=== PATIENT | female | born 1980 | race Caucasian/White ===

== ENCOUNTER 2022-05-16 15:27 | Emergency (ER) | payer BC, SELFPAY ==
[2022-05-16 15:29] VITALS: BP 121/82; PULSE 85; RESP 16; TEMP 36.1; O2SAT 99; BMI 39.4
--- NOTE | 2022-05-16 15:41 | CT_ITS ---
STUDY: CT ABDOMEN AND PELVIS WITHOUT CONTRAST REASON FOR EXAM: Female, 41 years old. left flank pain RADIATION DOSAGE (If Supplied By Facility): CTDIvol = ( 16.92 ) mGy, DLP = ( 841.42 ) mGycm TECHNIQUE: Transaxial images were obtained from the dome of the diaphragm to the symphysis pubis without oral contrast, and without intravenous contrast. Sagittal and coronal images were reconstructed. Individualized dose optimization techniques were used for this CT. COMPARISON: None. FINDINGS: The visualized lung bases are unremarkable. The visualized portions of the heart are within normal limits. Normal liver. Normal gallbladder and extrahepatic biliary system. Normal spleen. Normal pancreas. Normal bilateral adrenal glands. Normal right kidney. Normal left kidney. Normal visualized stomach. Mild nonspecific ileus diffuse fecal retention in colon.. Minor diverticular changes of the distal descending and sigmoid colon without evidence for acute diverticulitis. The appendix is visualized and appears normal. Minor atherosclerotic changes of the aorta without evidence for aneurysm.. Normal inferior vena cava. Normal retroperitoneum. Poorly distended thick walled bladder of uncertain significance.. IUD noted within the endometrial canal the uterus. There is a small amount of fluid in the cul-de-sac on the left possibly due to recent ovulation. Normal abdominal wall. Normal osseous structures. CT/Abdomen/Pelvis without Cont IMPRESSION: Mild ileus with diffuse fecal retention in the colon. Diverticular changes of the distal descending and sigmoid colon without evidence for acute diverticulitis. Small amount of fluid in the cul-de-sac possibly on the basis of recent ovulation. However clinical correlation is recommended in this regard Electronically Signed: Diego Rogers MD at 18:13 EST ,
[2022-05-16] MEDS: Ketorolac 30 MG/ML Syringe IV (15:48)
[2022-05-16 16:00] LABS: Absolute Lymphocyte Count 2.59 X10^3/uL (0.83-4.51); Absolute Neutrophil Count 7.4 X10^3/uL (2.0-7.7); Basophil# 0.02 X10^3/uL; Basophil% 0.2 % (0-1); Eosinophils% 1.8 % (0-5); Hematocrit 41.3 % (37-47); Lymphocyte # 2.59 X10^3/ul (0.83-4.51); Lymphocyte % 23.6 % (19-41); Mean Corp Hgb Conc 33.9 g/dL (32-36); Mean Corpuscular Volume 88.6 fL (81-99); Mean Platelet Vol. 9.7 fl (6.2-12.0); Monocyte# 0.76 X10^3/uL; Monocyte% 6.9 % (0-10); NRBC Flagged by Analyzer 0 % (0-5); Neutrophil # 7.35 X10^3/uL (2.7-7.7); Neutrophil % 67.1 % (47-70); Platelet Count 254 K/mm3 (150-450); RBC Distribution Width CV 11.9 % (11.6-14.6); RBC Distribution Width SD 38.5 fl (35.1-43.9); Red Blood Count 4.66 M/mm3 (4.2-5.4)
--- NOTE | 2022-05-16 16:04 | EDS_ITS ---
HPI <RAFAELA Cardenas - Last Filed: 05/16/22 20:14> History of Present Illness Chief Complaint: Back Narrative Narrative: 41-year-old female has had 1 month of left lower back pain. She states it felt like her sacrum was not in the right position so she went to the chiropractor, massage therapist, and has been using [id number] pain relievers and a TENS unit with no relief. Pain worsened over the last few days and seems to be wrapping around to her left side. She felt nauseous this morning with no vomiting. No urinary symptoms. She states maybe it felt a little difficult to pee today but she did not have a lot of fluids to drink. No history of kidney stones. No direct injury to her back although prior to this happening she had lifted a heavy umbrella. There is no pain radiating into her buttocks or lower extremities. No weakness, numbness or tingling, saddle anesthesia, or bladder or bowel incontinence. PFSH <RAFAELA Cardenas - Last Filed: 05/16/22 20:14> [facility] Medical History no medical history Home Medications amoxicillin 500 mg-potassium clavulanate 125 mg tablet (Augmentin) 1 tab PO BID 7 days #14 tabs 05/16/22 [Rx Last Taken Unknown] methocarbamol 500 mg tablet 500 mg PO Q8H 5 days #15 tabs 05/16/22 [Rx Last Taken Unknown] Allergy/AdvReac Type Severity Reaction Status Date / Time Penicillins Allergy Shortness Verified 05/16/22 15:36 of breath pineapple Allergy Hives Verified 05/16/22 15:36 Family History no significant family his Surgical History no surgical history Social History Smoking Status: Never smoker ROS <RAFAELA Cardenas - Last Filed: 05/16/22 20:14> ROS ED ROS Narrative Constitutional: Negative for fever, chills, malaise. CVS: Negative for palpitations, chest pain. Respiratory: Negative for shortness of breath, cough. GI: Negative for abdominal pain, vomiting, diarrhea, constipation, melena, hematochezia. : Negative for dysuria, hematuria or frequency. Neuro: Negative for motor/sensory dysfunction. Skin: Negative for rash, abscess, or wound. Musc: Negative for joint pain, swelling, trauma. EXAM <RAFAELA Cardenas - Last Filed: 05/16/22 20:14> Physical Exam Narrative Exam Narrative: CONST: Patient standing and flexed forward at the hips leaning against the bed. EYES: Normal inspection. ENT: Normal inspection, moist mucous membranes. NECK: Normal inspection. RESP: No respiratory distress, CTAB. CVS: Regular rate and rhythm, no murmur, no gallop. ABD: Soft and nontender, no guarding or rebound, nondistended. Back: Normal inspection, left CVA tenderness. No midline tenderness or step- offs. SKIN: Color normal, no rash, warm, dry, intact. EXTREMITIES: Normal appearance, no pedal edema. 5/5 strength in the bilateral hip flexion, knee flexion/extension, DF/PF. Normal sensation, 2+ DP pulses. Normal gait. NEURO: Oriented x4. PSYCH: Normal affect. Const Vital Signs: 05/16/22 15:29 05/16/22 18:31 05/16/22 19:00 Temperature 97 F L Temperature Source Temporal Pulse Rate 85 Respiratory Rate 16 18 Blood Pressure 121/82 H 113/60 Blood Pressure Mean 95 Pulse Ox 99 99 Oxygen Delivery Method Room Air Room Air <Dr. Marcos Nieves MD - Last Filed: 05/16/22 18:28> Physical Exam Const Vital Signs: 05/16/22 15:29 05/16/22 18:31 05/16/22 19:00 Temperature 97 F L Temperature Source Temporal Pulse Rate 85 Respiratory Rate 16 18 Blood Pressure 121/82 H 113/60 Blood Pressure Mean 95 Pulse Ox 99 99 Oxygen Delivery Method Room Air Room Air [facility] <RAFAELA Cardenas - Last Filed: 05/16/22 20:14> [facility] Narrative Medical decision making narrative: Patient is having a month of back pain but it seems more acute today in the left flank. She appears uncomfortable but nontoxic. Vital signs are unremarkable. She has a normal heart lung exam. Abdomen is soft, nontender, nondistended. She has left CVA tenderness. There is no midline spinal tenderness or step- offs. Its not her low back so with no concern for cauda equina?she also has no rmal lower extremity MSPs and reflexes and no red flag signs. Labs and CT scan will be obtained to rule out a kidney stone. CBC shows white count of 11.0, BMP normal. UA has 100 leukocyte esterace but is otherwise negative. Not consistent with UTI. CT shows no acute renal process. It does note mild ileus with diffuse fecal retention and diverticular changes of the distal descending and sigmoid colon. With this we elected to treat her for possibly early diverticulitis with Augmentin. Patient states she has had a rash with penicillins in the past but is taken Augmentin with no problems. She was given the first dose here and monitored for 30 minutes with no symptoms. I also told her to take Metamucil 3 times a day to have more regular bowel movements and prescribe Robaxin for her flank pain in case it is musculoskeletal. She was given return precautions and discharged in stable condition. Differential: Kidney stone, pyelonephritis, UTI, musculoskeletal pain Test considered but not ordered: MRI is not indicated as this is not radicular pain, no red flags concerning for cauda equina or epidural abscess. I have personally performed a face to face assessment of the patient and have reviewed the BEATRIS Note. I performed a substantive portion of the visit including all aspects of the following. My bertrand findings include: History is remarkable for abrupt onset of left flank pain that radiates anteriorly and to the left hip. This started on Thursday. It wax and wanes intensity. Patient has no history of renal ureterolithiasis. There is no family history of renal ureterolithiasis. She does report increased frequency. She has not noted blood in her urine. She does have pain with movement as well. Initially she could not find a position of comfort. She was lying on her side and was getting ready for a trip out of town. The pain has been persistent since onset. Exam is heavyset woman who appears uncomfortable. She is on her right side. Abdomen soft nontender. Bowel sounds are present normal. There is left CVA tenderness. Medical Decision Making differential diagnosis would include acute ureterolithiasis with obstruction, atypical presentation for urinary tract infection, atypical presentation for abdominal aortic aneurysm will obtain CT of the abdomen with out contrast as well as blood work and UA. Other additions or changes: [None] Lab Data Labs: Laboratory Results - last 24 hr 05/16/22 05/16/22 05/16/22 15:45 15:45 16:45 WBC 11.0 RBC 4.66 Hgb 14.0 Hct 41.3 MCV 88.6 MCH 30.0 MCHC 33.9 RDW Std Deviation 38.5 RDW Coeff of Hiram 11.9 Plt Count 254 MPV 9.7 Immature Gran % (Auto) 0.400 Neut % (Auto) 67.1 Lymph % (Auto) 23.6 [place] % (Auto) 6.9 Eos % (Auto) 1.8 Baso % (Auto) 0.2 Absolute Neuts (auto) 7.4 Absolute Lymphs (auto) 2.59 Nucleated RBC % 0 Sodium 139 Potassium 3.9 Chloride 109 H Carbon Dioxide 24.0 Anion Gap 6 BUN 11 Creatinine 0.88 Estim Creat Clear Calc 73.38 Est GFR (MDRD) Af Amer 91 Est GFR (MDRD) Non-Af 75 BUN/Creatinine Ratio 12.5 Glucose 114 H Calcium 8.8 Urine Color Yellow Urine Clarity Clear Urine pH 6.0 Ur Specific [place] 1.020 Urine Protein 30 H Urine Glucose (UA) Normal Urine Ketones 5 H Urine Occult Blood 10 H Urine Nitrite Negative Urine Bilirubin Negative Urine Urobilinogen Normal Ur Leukocyte Esterase 100 H Urine RBC 0 SEEN Urine WBC 0-5 SEEN Ur Squamous Epith Cells 0-5 SEEN Urine Bacteria RARE Urine Mucus 0 SEEN Urine Test Negative Radiography Diagnostic Testing: Clinical Impression(s) from Imaging Studies Abdomen/Pelvis CT 05/16/22 15:41 IMPRESSION: Mild ileus with diffuse fecal retention in the colon. Diverticular changes of the distal descending and sigmoid colon without evidence for acute diverticulitis. Small amount of fluid in the cul-de-sac possibly on the basis of recent ovulation. However clinical correlation is recommended in this regard Electronically Signed: Diego Rogers MD at 18:13 EST , <Dr. Marcos Nieves MD - Last Filed: 05/16/22 18:28> [facility] Narrative Medical decision making narrative: I have personally performed a face to face assessment of the patient and have reviewed the BEATRIS Note. I performed a substantive portion of the visit including all aspects of the following. My bertrand findings include: History is remarkable for abrupt onset of left flank pain that radiates anteriorly and to the left hip. This started on Thursday. It wax and wanes intensity. Patient has no history of renal ureterolithiasis. There is no family history of renal ureterolithiasis. She does report increased frequency. She has not noted blood in her urine. She does have pain with movement as well. Initially she could not find a position of comfort. She was lying on her side and was getting ready for a trip out of town. The pain has been persistent since onset. Exam is heavyset woman who appears uncomfortable. She is on her right side. Abdomen soft nontender. Bowel sounds are present normal. There is left CVA tenderness. Medical Decision Making differential diagnosis would include acute ureterolithiasis with obstruction, atypical presentation for urinary tract infection, atypical presentation for abdominal aortic aneurysm will obtain CT of the abdomen with out contrast as well as blood work and UA. Other additions or changes: [None] History & Record Review Additional record(s) reviewed:: Prior inpatient record (No outside records available), Prior outpatient record (No outside records available through [employer] [facility] [place]) and No prior records (At [facility]) Lab Data Labs: Laboratory Results - last 24 hr 05/16/22 05/16/22 05/16/22 15:45 15:45 16:45 WBC 11.0 RBC 4.66 Hgb 14.0 Hct 41.3 MCV 88.6 MCH 30.0 MCHC 33.9 RDW Std Deviation 38.5 RDW Coeff of Hiram 11.9 Plt Count 254 MPV 9.7 Immature Gran % (Auto) 0.400 Neut % (Auto) 67.1 Lymph % (Auto) 23.6 [place] % (Auto) 6.9 Eos % (Auto) 1.8 Baso % (Auto) 0.2 Absolute Neuts (auto) 7.4 Absolute Lymphs (auto) 2.59 Nucleated RBC % 0 Sodium 139 Potassium 3.9 Chloride 109 H Carbon Dioxide 24.0 Anion Gap 6 BUN 11 Creatinine 0.88 Estim Creat Clear Calc 73.38 Est GFR (MDRD) Af Amer 91 Est GFR (MDRD) Non-Af 75 BUN/Creatinine Ratio 12.5 Glucose 114 H Calcium 8.8 Urine Color Yellow Urine Clarity Clear Urine pH 6.0 Ur Specific [place] 1.020 Urine Protein 30 H Urine Glucose (UA) Normal Urine Ketones 5 H Urine Occult Blood 10 H Urine Nitrite Negative Urine Bilirubin Negative Urine Urobilinogen Normal Ur Leukocyte Esterase 100 H Urine RBC 0 SEEN Urine WBC 0-5 SEEN Ur Squamous Epith Cells 0-5 SEEN Urine Bacteria RARE Urine Mucus 0 SEEN Urine Test Negative Radiography Diagnostic Testing: Clinical Impression(s) from Imaging Studies Abdomen/Pelvis CT 05/16/22 15:41 IMPRESSION: Mild ileus with diffuse fecal retention in the colon. Diverticular changes of the distal descending and sigmoid colon without evidence for acute diverticulitis. Small amount of fluid in the cul-de-sac possibly on the basis of recent ovulation. However clinical correlation is recommended in this regard Electronically Signed: Diego Rogers MD at 18:13 EST Reading Location ID and State: [facility] / [place] , Service support , Discharge Plan Triage Chief Complaint: Back ED Midlevel Provider: Annemarie Alvarado ED Provider: Marcos Nieves Dx/Rx/DC Orders Clinical Impression: Constipation, Acute left flank pain, Elevated blood pressure reading, Diverticulosis Instructions: ED Constipation (Adult), ED Flank Pain, Uncertain Cause Prescriptions: New amoxicillin-pot clavulanate [Augmentin] 500-125 mg tablet 1 tab PO BID 7 Days Qty: 14 0RF methocarbamol 500 mg tablet 500 mg PO Q8H 5 Days Qty: 15 0RF Primary Care Provider: Care Physician,No Primary Referrals: Care Physician,No Primary [Primary Care Provider] - Activity Restrictions/Additional Instructions: I am not sure what is causing your flank pain. There is no evidence of kidney stone on the CAT scan. It does show significant stool throughout your colon and some diverticular disease. We will treat you for possible diverticulitis with antibiotics. Please buy Metamucil and take this 3 times a day until you are having regular bowel movements as your constipation may be contributing to your pain. Return to ER if symptoms worsen. Disposition Disposition: Home, Self Care
[2022-05-16 16:09] LABS: Anion Gap 6 (5-15); BUN 11 mg/dL (7-18); BUN/Creat Ratio 12.5 RATIO (10-20); Calcium,Total 8.8 mg/dL (8.5-10.1); Chloride 109 mmol/L (98-107); Creatinine, Serum 0.88 mg/dL (0.55-1.02); EST Glomerular Filtration Rate 75 mL/min (>60); Est Glom Filt Rate - Afr Amer 91 mL/min (>60); Estimated Creatinine Clearance 73.38 ml/min; Glucose 114 mg/dL (74-106); Potassium 3.9 mmol/L (3.5-5.1); Sodium Level 139 mmol/L (136-145)
[2022-05-16 16:52] LABS: Mucous, Urine 0 SEEN /hpf (<or=2+); Red Blood Cells-Urine 0 SEEN /hpf (0-5)
[2022-05-16 16:58] LABS: Color, Urine Yellow (Yellow); Glucose, Dipstick Normal (Normal); Ketone-Dipstick 5 mg/dl (Negative); Leukocyte Esterase-Dipstick 100 /ul (Negative); Nitrite-Dipstick Negative (Negative); Occult Blood-Urine 10 /ul (Negative); Protein-Dipstick 30 mg/dl (Negative); Urine Bilirubin Dipstick Negative (Negative); Urine Clarity Clear (Clear); Urine Urobilinogen Normal (Normal)
[2022-05-16 17:31] LABS: Bacteria RARE /hpf (None Seen); Squamous Epithelial Cells - UA 0-5 SEEN /hpf (5-10); White Blood Cells 0-5 SEEN /hpf (0-5)
[2022-05-16 17:32] LABS: Internal QC Validated? YES +Cl - CLEAR BKGD; Pregnancy, Urine Negative Negative
[2022-05-16 18:31] VITALS: BP 113/60
[2022-05-16] MEDS: Amox/Clavulanate 500 MG Tablet PO (18:42)
[2022-05-16] MEDS: Methocarbamol 500 MG Tablet PO (18:50)
[2022-05-16 19:00] VITALS: RESP 18; O2SAT 99
--- NOTE | 2022-05-16 19:16 | ED.RN ---
BEEN 30MIN SINCE PT TOOK MEDICATION. NO SWELLING,REDNESS AND HIVES. PT DENIES ANY OTHER SYM. STATING REACTIONS WERE INSTANT WITH PENICILLINS. PT EDUCATED ON SYM TO WATCH FOR IF ALLERGIC REACTION WOULD TO HAPPEN. PT AND IN AGREEMENT. PT D/C IN STABLE CONDITION.
== END 2022-05-16 19:20 | disposition home or self-care (01) ==
PROVIDERS: Physician Assistant; Emergency Provider Emergency Medicine; Visit Provider Emergency Medicine
DX: R10.9 Unspecified abdominal pain (principal); R03.0 Elevated blood-pressure reading, without diagnosis of hypertension; K57.30 Diverticulosis of large intestine without perforation or abscess without bleeding; K59.00 Constipation, unspecified
CPT/HCPCS: 74176; 80048; 81001; 81025; 85025; 96374; 99283; A4216

== ENCOUNTER → 2022-06-30 | Outpatient (CLI) | payer BC, SELFPAY ==
[2022-06-30 16:41] LABS: Absolute Lymphocyte Count 2.99 X10^3/uL (0.83-4.51); Absolute Neutrophil Count 6.8 X10^3/uL (2.0-7.7); Basophil# 0.02 X10^3/uL; Basophil% 0.2 % (0-1); Eosinophil# 0.11 X10^3/uL; Hematocrit 39.8 % (37-47); Hemoglobin 13.5 g/dL (12.0-15.0); Lymphocyte # 2.99 X10^3/ul (0.83-4.51); Mean Corp Hgb Conc 33.9 g/dL (32-36); Mean Corpuscular Hgb 29.8 pg (27.0-32.0); Mean Corpuscular Volume 87.9 fL (81-99); Mean Platelet Vol. 9.3 fl (6.2-12.0); Monocyte# 0.66 X10^3/uL; Monocyte% 6.2 % (0-10); NRBC Flagged by Analyzer 0 % (0-5); Neutrophil # 6.83 X10^3/uL (2.7-7.7); Neutrophil % 64.1 % (47-70); Platelet Count 292 K/mm3 (150-450); RBC Distribution Width CV 12.4 % (11.6-14.6); RBC Distribution Width SD 39.7 fl (35.1-43.9); Red Blood Count 4.53 M/mm3 (4.2-5.4); White Blood Count 10.7 K/mm3 (4.4-11.0)
[2022-06-30 17:26] LABS: ALB/GLOB Ratio 1.2 RATIO (0.9-2.4); AST(SGOT) 21 U/L (15-37); Alanine Aminotransfer ALT/SGPT 23 U/L (13-56); Albumin, Serum 3.8 g/dL (3.2-5.0); Alkaline Phosphatase 66 U/L (45-117); Anion Gap 4 (5-15); BUN 10 mg/dL (7-18); BUN/Creat Ratio 13.4 RATIO (10-20); Calcium,Total 8.7 mg/dL (8.5-10.1); Chloride 106 mmol/L (98-107); Creatinine, Serum 0.74 mg/dL (0.55-1.02); EST Glomerular Filtration Rate 91 mL/min (>60); Est Glom Filt Rate - Afr Amer 111 mL/min (>60); Globulin 3.3 g/dL (2.2-4.2); Glucose 89 mg/dL (74-106); Potassium 3.7 mmol/L (3.5-5.1); Protein, Total 7.1 g/dL (6.4-8.2); Sodium Level 136 mmol/L (136-145); Thyroid Stim Hormone (TSH) 2.35 uIU/mL (0.358-3.74)
== END | disposition home or self-care (01) ==
LOC: BIMLAB 16:13
PROVIDERS: Visit Provider Internal Medicine
DX: K59.00 Constipation, unspecified (principal); R63.4 Abnormal weight loss
CPT/HCPCS: 36415; 80053; 84443; 85025

== ENCOUNTER 2022-08-12 08:12 | Day surgery (SDC) | payer BC, SELFPAY ==
[2022-08-12] VITALS (7 sets, daily range): BP systolic 98–132; BP diastolic 54–81; PULSE 61–88; RESP 16; TEMP 36.6–36.9; O2SAT 96–99; BMI 39.4
--- NOTE | 2022-08-12 08:50 | PCM.HP.BLA ---
History and Physical Date of Admission: 08/12/22 Intake Vital Signs ? 07/01/2310:18 07/08/2313:40 Height 5 ft 4 in 5 ft 3 in Weight: ? 227 lb BMI ? 40.1 BP ? 121/86 H Blood Pressure Location ? Rt radial Position ? Sitting Respiration ? 18 Pulse ? 87 Pulse Source ? Monitor Temp ? 97.9 F Temp Source ? 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 Is patient in pain?: Yes Allergies Penicillins Allergy (Severe, Verified 07/08/22 14:42) Swellingpineapple Allergy (Verified 07/08/22 14:42) Hivespineapple Allergy (Mild, Uncoded 07/08/22 14:42) Other Medications amoxicillin 500 mg-potassium clavulanate 125 mg tablet (Augmentin) 1 tab PO BID 7 days #14 tabs 05/16/22 [Rx] methocarbamol 500 mg tablet 500 mg PO Q8H 5 days #15 tabs 05/16/22 [Rx] docusate sodium 100 mg tablet 100 mg PO BID #60 tabs 06/30/22 [Rx Confirmed 07/08/22] polyethylene glycol 3350 17 gram/dose oral powder (Miralax) 4 g PO DAILY 07/08/22 [History Confirmed 07/08/22] psyllium husk (with sugar) 2 gram oral wafer (Metamucil Fiber Thin) 2 wafer PO DAILY 07/08/22 [History Confirmed 07/08/22] PFSH Medical History? Allergies Back problem Diverticulitis Surgical History? Hx of tonsillectomy Family History? Father Alcoholism DepressionMother Arthritis Diabetes Hypertension MelanomaGrandfather Colon cancer Myocardial infarctionGrandmother Cancer ?? ? pancreatic Diabetes Osteoporosis CVA (cerebral vascular accident)Other High cholesterol Social History? household members:? spouse and children current occupational status:? 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 Never smoker Electronic Cigarette Use:? not used alcohol intake:? current alcohol intake frequency: a few times a week details:? 3 x a week substance use type:? does not use what type of physical activity do you participate in:? walking do you feel safe at home:? Yes HPI HPI HPI: Patient is a 42-year-old female here for colonoscopy.? The patient reports that she has been having severe constipation since April of this year.? She says she has had about 15 pounds of weight loss in the last year that is unintentional.? Patient reports that when she feels constipated she has burning and pain in the left flank.? She says that she has bowel movements every 2 to 3 days.? She says they are hard and require straining.? She was recently in the emergency room and had a CT scan that showed diverticular changes of the sigmoid colon.? Patient denies any blood in her stool or nausea or vomiting.? She also has family history of colon cancer in both of her grandfathers.? She has never had a colonoscopy. ROS General General: Yes weight change; No appetite, fatigue, colon cancer, breast cancer or weakness HEENT HEENT: No difficulty swallowing, eye injury, eye surgery, swollen glands or hoarseness Endo Endocrine: No thyroid disease, diabetes mellitus, thyroid cancer, Hair loss, heat intolerance or cold intolerance Skin Skin: No rash or changing moles Breast Breast: No left breast lump, right breast lump, nipple discharge, breast pain, abnormal mammogram, abnormal US or breast enlargement Musc Musculoskeletal: Yes back problems; No arthritis, rheumatoid arthritis, gout or joint pain Cardio Cardiovascular: No murmur, pacemaker, heart disease, atrial fibrillation, high blood pressure, heart attack, heart stent, palpitations, shortness of breat with exertion or chest pain Psych Psychiatric: Yes depression and anxiety; No hearing voices Resp Respiratory: No shortness of breath, No sleep apnea, No cough, No COPD, No asthma, No emphysema and No wheezing Gastro Gastrointestinal: Yes abdominal pain, No nausea or vomiting, No diarrhea, Yes constipation, No blood in stool, No acid reflux, No hemorrhoids, No ulcers, No gallbladder problem and No black,tarry stools Best Hematologic: No blood thinners, No blood disorders, No bleeding, No anemia and No blood clots Neuro Neurologic: No system reviewed and no additional complaints, except as documented, No as per HPI, No abnormal gait, No abnormal hearing, No abnormal movements, No abnormal speech, No behavioral changes, No burning sensations, No confusion, No convulsions, No disequilibrium, No dizziness, No localized weakness, No frequent falls, No headache(s), No lack of coordination, No loss of vision, No memory loss, No numbness, No other visual disturbances, No radicular pain, No restless legs, No sensory deficit, No syncope, No tingling, No tremor(s), No weakness and No other Exam Const General: cooperative Orientation: alert and oriented x3 HENMT Head: normal to inspection Neck Neck: normal visual inspection and full ROM Chest Chest palpation & inspection: normal inspection of the chest Resp Effort & Inspection: normal respiratory effort Auscultation: clear to auscultation bilaterally Cardio Rate: regular rate Rhythm: regular rhythm GI Inspection: non-distended Palpation: soft and nontender Skin General: no rashes or lesions noted Neuro General: patient alert and patient oriented x3 Extrem General: full ROM Psych Appearance: grossly normal Mental Status: mental status grossly normal Assessment and Plan Assessment and Plan (1) Constipation: ?Qualifiers: ?Constipation type:?unspecified constipation type? Qualified Code(s):?K59.00 - Constipation, unspecified (2) Weight loss: ? ? ? Orders: Orders Colonoscopy Today ? ? Plan Patient has been having constipation for a few months and she has been having unintentional weight loss.? CT scan revealed diverticular changes of the sigmoid colon.? It is possible that these were all constipation issues or she may be having a diverticular stricture that is causing partial obstruction.? Patient also has a family history of colon cancer and has never had colonoscopy.? I discussed colonoscopy with her and we will perform colonoscopy for her. I explained endoscopy in detail to the patient.? I explained the risks including but not limited to stroke or heart attack with anesthesia, perforation of the GI tract, bleeding, infection.? I explained that any of these could necessitate further emergency surgery.? The patient understands and all questions were answered sufficiently.? The patient wishes to proceed with procedure. Rashid Ramos MD Pager: [facility] [address] [place] [address], [address] [place] [address] Office: I have examined the patient and the H&P has been reviewed. There are no clinical changes since date of exam.
[2022-08-12] MEDS: Lactated Ringers 1,000 ML 15 ML IV (08:53)
[2022-08-12 09:08] LABS: Internal QC Validated? YES +Cl - CLEAR BKGD; Pregnancy, Serum, hCG Quali. NEGATIVE Negative
--- NOTE | 2022-08-12 09:36 | OP.COLON_ITS ---
Patient Name: Samuel Contreras Procedure Date: 08/12/2022 9:00 AM Date of : 1980 Age: 42 Procedure: Colonoscopy Indications: Abdominal pain in the left lower quadrant, Constipation Providers: Rashid Ramos MD Medicines: Monitored Anesthesia Care Patient Profile: This is a 42 year old female. Refer to note in patient chart for documentation of history and physical. Last Colonoscopy: none. The patient's first colonoscopy is today. Complications: No immediate complications. Procedure: Pre-Anesthesia Assessment: - Prior to the procedure, a History and Physical was performed, and patient medications and allergies were reviewed. The patient's tolerance of previous anesthesia was also reviewed. The risks and benefits of the procedure and the sedation options and risks were discussed with the patient. All questions were answered, and informed consent was obtained. Prior Anticoagulants: The patient has taken no previous anticoagulant or antiplatelet agents. After reviewing the risks and benefits, the patient was deemed in satisfactory condition to undergo the procedure. After I obtained informed consent, the scope was passed under direct vision. Throughout the procedure, the patient's blood pressure, pulse, and oxygen saturations were monitored continuously. The pediatric colonoscope was introduced through the anus and advanced to the cecum, identified by appendiceal orifice and ileocecal valve. The colonoscopy was performed without difficulty. The patient tolerated the procedure well. The quality of the bowel preparation was good. Scope In: 9:15:20 AM Scope Withdrawal Time 0 hours 2 minutes 49 seconds Scope Out: 9:27:41 AM Total Procedure Duration Time 0 hours 12 minutes 21 seconds Findings: The entire examined colon appeared normal on direct and retroflexion views. Impression: - The entire examined colon is normal on direct and retroflexion views. - No specimens collected. Recommendation: - Discharge patient to home. - Resume previous diet. - Continue present medications. - Repeat colonoscopy in 10 years for screening purposes. Procedure Code(s): --- Professional --- 25742, Colonoscopy, flexible; diagnostic, including collection of specimen(s) by brushing or washing, when performed (separate procedure) Diagnosis Code(s): --- Professional --- R10.32, Left lower quadrant pain K59.00, Constipation, unspecified CPT copyright 2017 [employer]. All rights reserved. The codes documented in this report are preliminary and upon truck cleaner review may be revised to meet current compliance requirements. Rashid Ramos MD 08/12/2022 9:36:40 AM This report has been signed electronically. Number of Addenda: 0 Note Initiated On: 08/12/2022 9:00 AM
--- NOTE | 2022-08-12 09:36 | OP.CCLET_ITS ---
08/12/2022 Natalie Stewart Md Re : Colonoscopy procedure for Samuel Contreras Dear Pat This procedure was performed on Friday, August 12, 2022. My impressions and recommendations are as follows: Impressions : - The entire examined colon is normal on direct and retroflexion views. - No specimens collected. Recommendations : - Discharge patient to home. - Resume previous diet. - Continue present medications. - Repeat colonoscopy in 10 years for screening purposes. My findings are described in the full procedure note, which is enclosed. If I can be of further assistance, please feel free to contact me at Doctor phone number(s): , Work: . Sincerely, Rashid Ramos MD 08/12/2022 9:36:40 AM This report has been signed electronically.
== END 2022-08-12 10:15 | disposition home or self-care (01) ==
LOC: EN 08:12 → AC 08:16
PROVIDERS: Anesthesiology; PCP Internal Medicine; Referring Provider Internal Medicine; Visit Provider Surgery
PROC: 0DJD8ZZ Inspection of Lower Intestinal Tract, Via Natural or Artificial Opening Endoscopic (ICD-10-PCS; CPT 45378; principal; 2022-08-12 09:10)
DX: R10.32 Left lower quadrant pain (principal); K57.30 Diverticulosis of large intestine without perforation or abscess without bleeding; Z80.0 Family history of malignant neoplasm of digestive organs; K59.00 Constipation, unspecified
CPT/HCPCS: 45378; 84703; J7120; J2405

== ENCOUNTER → 2022-12-11 | Outpatient (CLI) | payer BC, SELFPAY ==
[2022-12-11 16:33] LABS: Absolute Lymphocyte Count 2.38 X10^3/uL (0.83-4.51); Absolute Neutrophil Count 5.6 X10^3/uL (2.0-7.7); Basophil# 0.02 X10^3/uL; Basophil% 0.2 % (0-1); Eosinophil# 0.09 X10^3/uL; Hematocrit 41.1 % (37-47); Hemoglobin 14.1 g/dL (12.0-15.0); Lymphocyte # 2.38 X10^3/ul (0.83-4.51); Lymphocyte % 27.7 % (19-41); Mean Corp Hgb Conc 34.3 g/dL (32-36); Mean Corpuscular Hgb 30.6 pg (27.0-32.0); Mean Corpuscular Volume 89.2 fL (81-99); Mean Platelet Vol. 9.5 fl (6.2-12.0); Monocyte% 5.8 % (0-10); NRBC Flagged by Analyzer 0 % (0-5); Neutrophil # 5.58 X10^3/uL (2.7-7.7); Platelet Count 290 K/mm3 (150-450); RBC Distribution Width CV 12.4 % (11.6-14.6); RBC Distribution Width SD 40.4 fl (35.1-43.9); Red Blood Count 4.61 M/mm3 (4.2-5.4); White Blood Count 8.6 K/mm3 (4.4-11.0)
[2022-12-11 17:16] LABS: Vitamin B12 227 pg/mL (211-911); Vitamin D,25 Hydroxy 26.1 ng/mL
[2022-12-11 18:14] LABS: ALB/GLOB Ratio 1.2 RATIO (0.9-2.4); AST(SGOT) 13 U/L (15-37); Alanine Aminotransfer ALT/SGPT 21 U/L (13-56); Alkaline Phosphatase 66 U/L (45-117); Anion Gap 7 (5-15); BUN 10 mg/dL (7-18); Calcium,Total 8.6 mg/dL (8.5-10.1); Chloride 105 mmol/L (98-107); EST Glomerular Filtration Rate 65 mL/min (>60); Est Glom Filt Rate - Afr Amer 78 mL/min (>60); Globulin 3.3 g/dL (2.2-4.2); Glucose 88 mg/dL (74-106); Potassium 3.6 mmol/L (3.5-5.1); Protein, Total 7.3 g/dL (6.4-8.2); Sodium Level 137 mmol/L (136-145); Thyroid Stim Hormone (TSH) 1.93 uIU/mL (0.358-3.74)
[2022-12-15 13:07] LABS: Anti-Centromere B Ab <0.2 AI (0.0-0.9); Anti-Chromatin 0.5 AI (0.0-0.9); Anti-Jo <0.2 AI (0.0-0.9); Anti-Nuclear Antibody Test Positive (.); Anti-Scleroderma-70 AB <0.2 AI (0.0-0.9); Anti-dsDNA Ab 1 IU/mL (0-9); RNP Ab 0.2 AI (0.0-0.9); SJOGREN'S Anti-SS-A test < 0.2 AI (0.0-0.9); SJOGREN'S Anti-SS-B test < 0.2 AI (0.0-0.9); Smith Ab <0.2 AI (0.0-0.9)
[2022-12-16 16:09] LABS: Endomysial Antibody IgA Negative (Negative); Immunoglobulin A 120 mg/dL (87-352); t-Transglutaminase IgA <2 U/mL (0-3)
== END | disposition home or self-care (01) ==
LOC: BIMLAB 15:53
PROVIDERS: PCP Internal Medicine; Visit Provider Internal Medicine
DX: R41.89 Other symptoms and signs involving cognitive functions and awareness (principal); E56.9 Vitamin deficiency, unspecified
CPT/HCPCS: 36415; 80053; 82306; 82607; 82784; 83516; 84443; 85025; 86038; 86225; 86235; 86255

== ENCOUNTER → 2023-01-12 | Outpatient (CLI) | payer BC, SELFPAY ==
--- NOTE | 2023-01-12 17:18 | MRI_ITS ---
INDICATION: cognitive decline EXAMINATION: MRI - MR Brain WO/W Contrast TECHNIQUE: Multiplanar and multisequence MR images of the brain were obtained without and with gadolinium. IV Contrast Dosage and Agent: None. COMPARISON: No relevant prior comparison study available FINDINGS: BRAIN PARENCHYMA: No MRI evidence of hemorrhage. No evidence of acute infarct. No intracranial mass or mass effect. There is preservation of the titus/white matter interface. Normal sella turcica, pituitary gland, infundibular stalk, optic chiasm and hypothalamus. Posterior fossa structures are unremarkable. INTERNAL AUDITORY CANALS: The internal auditory canals are well visualized and patent. No mass identified. CSF SPACES: Appropriate for age. No hydrocephalus. Basal cisterns are patent. VASCULAR SYSTEM: Normal flow voids in the major intracranial circulation. CALVARIUM, SKULL BASE, PARANASAL SINUSES AND MASTOID AIR CELLS: Clear. No expansile changes. ORBITS: Both globes, extraocular muscles, optic nerves and retrobulbar fat appear unremarkable. MRI/Brain W/WO Contrast IMPRESSION: Negative MRI Brain and Interal Auditory Canals. Electronically Signed: Bj Condon MD at 8:19 EST Reading Location ID and State: [facility] / [place] Tel , Service support ,
== END | disposition home or self-care (01) ==
LOC: MRI 16:58
PROVIDERS: PCP Internal Medicine; Visit Provider Internal Medicine
DX: R41.89 Other symptoms and signs involving cognitive functions and awareness (principal)
CPT/HCPCS: 70553; A9575

== ENCOUNTER → 2024-10-21 | Outpatient (CLI) | payer BC, SELFPAY ==
[2024-10-21 17:12] LABS: Hematocrit 38.5 % (37-47); Hemoglobin 13.5 g/dL (12.0-15.0); Immature Granulocytes Count 0.040 X10^3/uL (0.0-0.0); Mean Corp Hgb Conc 35.1 g/dL (32-36); Mean Corpuscular Volume 87.1 fL (81-99); Mean Platelet Vol. 9.5 fl (6.2-12.0); NRBC Flagged by Analyzer 0 % (0-5); Platelet Count 244 K/mm3 (150-450); RBC Distribution Width CV 11.9 % (11.6-14.6); RBC Distribution Width SD 38.1 fl (35.1-43.9); Red Blood Count 4.42 M/mm3 (4.2-5.4); White Blood Count 9.5 K/mm3 (4.4-11.0)
[2024-10-21 18:01] LABS: CRP < 3.00 mg/L (0.0-3.0); Uric Acid 3.7 mg/dL (2.6-6.0)
[2024-10-24 14:08] LABS: ANTINUCLEAR ANTIBODIES DIRECT Negative (Negative)
== END | disposition home or self-care (01) ==
LOC: LAB 16:47
PROVIDERS: PCP Internal Medicine; Referring Provider Physician Assistant; Visit Provider Physician Assistant
DX: S46.111A Strain of muscle, fascia and tendon of long head of biceps, right arm, initial encounter (principal); M25.411 Effusion, right shoulder; X58.XXXA Exposure to other specified factors, initial encounter
CPT/HCPCS: 36415; 84550; 85025; 85652; 86038; 86140; 86200; 86431